=== PATIENT | male | born 1970 | race Caucasian/White ===

== ENCOUNTER 2025-02-22 10:43 | Inpatient (IN) | payer BC, SELFPAY ==
[2025-02-22] VITALS (23 sets, daily range): BP systolic 105–138; BP diastolic 73–93; PULSE 74–96; RESP 16–22; TEMP 36.6; O2SAT 93–99; BMI 27.2
--- NOTE | 2025-02-22 10:45 | ECG_ITS ---
APPROVED REPORT Exam: Resting ECG HR:79 bpm ECG Measurements Heart Rate 79 AXES WA 136 P 0 QRSd 96 QRS -9 QT 359 T 37 QTc 394 Conclusion SINUS RHYTHM POSSIBLE RIGHT VENTRICULAR CONDUCTION DELAY [RSR (QR) IN V1/V2] ST ELEVATION, PROBABLY EARLY REPOLARIZATION [ST ELEVATION WITH NORMALLY INFLECTED T-WAVE] BORDERLINE ECG UNCONFIRMED REPORT Electronically signed by : Kyler Mendez, 02/22/2025 15:00:13
--- NOTE | 2025-02-22 10:50 | IR_ITS ---
APPROVED REPORT Patient Location: Emergent PROCEDURES Left heart catheterization Left ventriculogram Selective coronary angiogram Drug-eluting stent deployment in the proximal LAD and mid LAD in a noncontiguous manner Mechanical thrombectomy to the LAD Intravascular ultrasound to the left anterior descending artery INDICATION Acute anterior ST elevation myocardial infarction, Coronary artery disease, Heavy thrombus burden, Complex coronary artery disease Informed consent was obtained prior to the procedure. COMPLICATIONS NONE Estimated Blood Loss: LESS THAN 10 ML TECHNIQUE One percent lidocaine used to anesthetize the right anterior aspect of the wrist. The right radial artery was accessed via the Seldinger technique. A 6 [place] sheath was placed in the right radial artery. 2.5 mg of Verapamil, 800 mcg of nitroglycerin, 1mg Lidocaine and 5000 U Heparin were given through the arterial sheath. The JL3 catheter was also used to perform left heart catheterization, left ventriculogram and selective coronary angiogram. At the end the diagnostic angiogram therapeutic heparin was administered and a Choice PT extra-support wire was placed distally in the LAD. A [employer] mechanical thrombectomy catheter was advanced and a large thrombus was aspirated restoring DAVID-3 flow. A 4 mm x 8 mm Donell frontier stent was deployed at 24 anamaria in the proximal left anterior descending artery. Intravascular ultrasound probe was advanced as the LAD was large caliber and it appeared there was spasm and slow flow distally. IVUS was performed to determine where atherosclerotic plaque was present as opposed to spasm. Following intravascular ultrasound probe a 4 mm x 22 mm Donell frontier stent was deployed at 12 anamaria in the proximal to mid LAD. A 4 mm x 8 mm noncompliant balloon was then deployed in the proximal segment at 20 anamaria to post dilate the stenosed area. DAVID 0 flow was present at the beginning the procedure with DAVID-3 flow at the end of the procedure. Then the procedure the apparatus was removed the sheath was removed and hemostasis was achieved using TR banding patient was transferred to the postop putting in stable condition ANGIOGRAPHIC RESULTS The left main artery Normal The left anterior descending artery Has a proximal 50% stenosis accompanied by a large occluding thrombus. There is an additional proximal concentric 80% stenosis followed by mild atheromatous plaque in the mid and distal segment. There was an initial thrombosis also in the 80% stenosis. Following revascularization there was wide inline flow throughout the entire LAD as the LAD wraps the apex and supplied a portion of the inferior wall. The first diagonal artery was jailed from the stent creating 70 to 80% stenosis accompanied by DAVID III flow The circumflex artery Is large and dominant and has diffuse proximal mid vessel 30% stenosis The right coronary artery Nondominant yet still large-caliber with mid vessel diffuse 40% stenosis The MCHUGH ventriculogram reveals Reduced ejection fraction with anterior wall hypokinesis The left ventricular end-diastolic pressure 30% IMPRESSION Acute anterior ST elevation myocardial infarction Successful mechanical thrombectomy to the proximal and mid LAD with successful drug-eluting stenting of the proximal and proximal to mid LAD in a noncontiguous manner Successful intravascular ultrasound probe of the LAD Reduced ejection fraction Elevated LVEDP PLAN 1. Effient and aspirin 2. Continuous telemetry monitoring 3. LDL less than 55 to be achieved with high intensity statin 4. Formal echocardiogram to determine degree of LV dysfunction and if LifeVest is required prior to discharge 5. Once hemodynamically stable start Entresto and carvedilol 6. Avoidance of tobacco products 7. Continuous telemetry monitoring for at least 48 hours Electronically signed by : Chino Back MD 02/22/2025 19:36:17
--- NOTE | 2025-02-22 10:50 | HMH.EDCP ---
Discharge Plan Clinical Impressions Clinical Impression: ST elevation (STEMI) myocardial infarction Discharge ED Provider: Katherine Mendez HPI General Stated Complaint: Chest Pain Time Seen by Provider: 02/22/25 10:49 History of Present Illness HPI narrative: Patient is a 54-year-old male presenting today with chest pain that started 45 minutes prior to arrival radiating to bilateral arms associate with diaphoresis. No past medical history aside from seizures. Related Data Allergies Allergy/AdvReac Type Severity Reaction Status Date / Time codeine Allergy Unknown Verified 02/22/25 10:50 allergy reaction PFSH [facility] Disclaimer: The information contained in this section may have been updated after the patient was seen, as this information can be updated by other users. Social History Smoking Status: Current every day smoker alcohol intake: never current occupational status: other Travel in the last 8 weeks?: None ROS Obtained: Yes All systems reviewed & no additional complaints except as documented Physical Exam General General appearance: in distress Respiratory Respiratory exam: Present normal lung sounds bilaterally Cardiovascular Cardiovascular exam: Present regular rate; Absent normal rhythm Neurological Exam Neurological exam: Present alert HEART Score HEART Score HEART Score assessment performed?: Yes History (anamnesis): Highly suspicious ECG: Significant ST-deviation Age: 45-65 years Risk factors: No known risk factors Troponin: </= normal limit HEART Score: 5 Critical Care Critical Care Time Critical Care Time: Yes Attestation: On , the high probability of a clinically significant, sudden or life threatening deterioration of the following system(s) required my full and direct attention, intervention and personal management. The time I documented below is in addition to time spent performing reported procedures but includes the following listed in this critical care notation. Total Time Total Critical Care Time: 35 Medical Decision Making Francisco J Inquiry Pt receiving controlled substance: No MDM Narrative Medical Decision Narrative: Patient with above history and physical EKG performed personal interpreted shows a ventricular rate of [address] elevations in leads V2 and V3 and V4 no obvious reciprocal changes but this is concerning clinically for a STEMI. Patient appears very uncomfortable aspirin given to him I discussed the case with our can dragger and he advised to give 100 units of heparin per kilogram will hold off on further antiplatelet agents that will be given in the Learning Administrator. This information was relayed to the patient we will take the patient immediately to the Learning Administrator at the earliest convenience.
[2025-02-22] MEDS: ASPIRIN 81MG CHEWABLE TABLET 324 MG PO (10:54)
--- NOTE | 2025-02-22 10:54 | PC.NURSE ---
STEMI alert called at 1053 am
--- NOTE | 2025-02-22 10:55 | PC.NURSE ---
18g IV established in the pt's left AC by MEHUL Cruz. pt placed on the defibrillation pads. pt clipped on bilateral groin and wrist. Obtained consent for cardiac catheterization from the pt.
[2025-02-22] MEDS: HEPARIN SODIUM 5,000 UNIT/ML VIAL 8600 UNIT IV (10:56)
--- NOTE | 2025-02-22 10:56 | PC.NURSE ---
pt was transported to the lab courier at this time.
--- NOTE | 2025-02-22 10:56 | PC.NURSE ---
Pt was taken out of the room at 1056 and taken to the Financial Analysis Manager
--- NOTE | 2025-02-22 10:57 | CA_ITS ---
APPROVED REPORT EXAM: Comprehensive 2D, Doppler, and color-flow Echocardiogram Sas Architect: Ayah Tang RVT Ht: 5 ft 10 in Wt: 190lbs BSA: 2.04 BP: 120/81 mmHg Indications: STEMI,CHEST PAIN 2D Dimensions IVSd 2.08 cm M: 0.6-1.2 LVEF (Visual) 65.60 % PWd 1.20 cm M: 0.6 - 1.2 LA Volume 53.20 mL LVDd 4.23 cm M: 4.2 - 5.9 LA Volume Index 26.08 mL/m2 (M/F) 16-34 LVDs 2.72 cm M: 2.5 - 4.0 M-Mode Dimensions LA Diam 3.03 cm (1.9-4.0) TAPSE 2.26 (<1.7) LV Diastology E Decel Time 217 (160-240 msec) E/A Ratio 0.8 Aortic Valve RONEL Index 1.48 cm2/m2 AoV Peak Oscar. 138.0 (50-130 cm/s) AI PHT 1579.00 ms AO Peak GR. 7.60 mmHg AO Mean GR. 4.70 (<5 mmHg) AO VTI 27.1 (18-25 cm) RONEL (VTI) 3.10 (2.5-4.5 cm2) Mitral Valve MV E Max Oscar. 51.0 (40-130 cm/s) MV A Velocity 68.0 (40-130 cm/s) E/A Ratio 0.75 MV PHT 63.0 ms Pulmonary Valve PV Peak Velocity 82.0 (50-150 cm/s) Tricuspid Valve TR P. Velocity 235.00 cm/s RAP Estimate 8.00 mmHg RVSP 30.00 mmHg Left Ventricle The left ventricle is normal size. Left ventricular systolic function is mildly reduced. There is increased left ventricular wall thickness. There is severe hypokinesis of the mid to distal septal, anteroseptal, and inferoseptal LV hearn. Grade 1 diastolic dysfunction is present. LVEF is 45% Right Ventricle The right ventricle is normal size. The right ventricular systolic function is normal. Atria The left atrium size is normal. The right atrium size is normal. There is no color Doppler evidence of interatrial shunt. Aortic Valve The aortic valve opens well. There is no hemodynamically significant aortic valvular stenosis. Mild aortic regurgitation is present. Mitral Valve The mitral valve is normal in structure. No evidence of mitral valve stenosis. Mild mitral regurgitation is present. Tricuspid Valve The tricuspid valve leaflets are thin and pliable. Trace tricuspid regurgitation. There is insufficient TR jet to estimate RVSP. Pulmonic Valve The pulmonary valve is grossly normal in structure. Trace pulmonic valve regurgitation is present. Great Vessels The aortic root is normal in size. IVC is normal in size and collapses >50% with inspiration. Pericardium There is no pericardial effusion. Other Information Study Quality: Fair Conclusion Mildly reduced LV systolic function (LVEF 45%). Severe hypokinesis of the mid to distal septal, anteroseptal, and inferoseptal LV hearn. MR, mild AI. Electronically signed by : Rula Liz MD 02/22/2025 15:49:37
[2025-02-22 10:59] LABS: Hematocrit 42.0 % (42.0-52.0); Hemoglobin 14.6 g/dL (14.1-18.0); Immature Granulocytes % 0.5 %; Mean Corpuscular HGB Conc 34.8 g/dL (31.8-35.4); Mean Corpuscular Hemoglobin 29.9 pg (27.0-31.2); Mean Corpuscular Volume 85.9 fl (80-94); Nucleated Red Blood Cells % 0 %; Platelet Count 246 K/mm3 (142-424); Red Blood Count 4.89 M/mm3 (4.60-6.20); Red Cell Distribution Width-SD 38.3 fL; White Blood Count 16.0 K/mm3 (4.8-10.8)
[2025-02-22 11:07] LABS: Alanine Aminotransferase 28 U/L (12-78); Albumin Level 4.7 g/dl (3.5-5.0); Albumin/Globulin Ratio 1.6 (1.1-1.8); Alkaline Phosphatase 114 U/L (38-126); Anion Gap 11.1 mEq/L (5-15); Aspartate Amino Transferase 31 U/L (17-59); Bilirubin,Total 1.4 mg/dl (0.2-1.3); Blood Urea Nitrogen 12 mg/dl (9-20); Calcium 9.4 mg/dl (8.4-10.2); Carbon Dioxide 28 mmol/L (22.0-30.0); Chloride 99 mmol/L (98-107); Creatinine Clearance Estimated 78 mL/min (50-200); Creatinine,Serum 1.30 mg/dl (0.66-1.25); Estimated Glomerular Filt Rate 57 ml/min (>60); GFR (African American) 69 ML/MIN (>60); Globulin 2.9 g/dL (1.3-3.2); Glucose 130 mg/dl (74-100); Potassium 3.1 mmoL/L (3.5-5.1); Sodium 135 mmol/L (136-145); Total Protein,Serum 7.6 g/dl (6.3-8.2)
[2025-02-22] MEDS: LIDOCAINE 1% 10ML MDV 10 ML IJ (11:07)
[2025-02-22] MEDS: NITROGLYCERIN 800MCG/8ML SYR (CATH LAB) 800 MCG IA (11:07)
[2025-02-22] MEDS: HEPARIN 1,000 UNITS/500ML NS (CATH LAB) 3000 UNIT IV (11:07)
[2025-02-22] MEDS: 0.9 % SODIUM CHLORIDE 500 ML 25 ML IV (11:07)
[2025-02-22] MEDS: VERAPAMIL 2.5MG/ML 2ML VIAL 2.5 MG IV (11:08)
[2025-02-22 11:10] LABS: Activated Partial Thrombo Time 23.7 seconds (22.8-30.6); INR 1.03 (0.9-1.1); Prothrombin Time 11.4 seconds (10.1-12.5)
[2025-02-22 11:18] LABS: Troponin I 0.02 ng/ml (0.00-0.034)
[2025-02-22] MEDS: PRASUGREL 10MG TAB 60 MG PO (11:23)
[2025-02-22] MEDS: FENTANYL 100MCG/2ML VIAL 50 MCG IV (11:24)
[2025-02-22] MEDS: HEPARIN 1,000 UNITS/ML 10ML VIAL (CATH LAB) 5000 UNIT IV (11:24)
[2025-02-22] MEDS: MIDAZOLAM HCL 1MG/ML 5ML VIAL 1 MG IV (11:24)
[2025-02-22 11:25] LABS: Total Cells Counted 100
[2025-02-22 11:26] LABS: RBC Morphology Normal
--- NOTE | 2025-02-22 11:40 | PC.NURSE ---
Report given to Carli RN.
--- NOTE | 2025-02-22 11:42 | HMH.PHAINT1 ---
Pharmacy Intervention Comments: MEDICATION RECONCILIATION COMPLETED ON PATIENT USING EXTERNAL FILL HISTORY FROM PHARMACY. -JESSICA MACK, GARLANDD
--- NOTE | 2025-02-22 12:19 | EXP.CARD.CON ---
History of Present Illness History of Present Illness Consult date: 02/22/25 Requesting physician: Rajan Brooks Consult reason: chest pain Chief complaint: chest pain History of present illness: Vijay Hamm is a 54-year-old male who presented to emergency department today with complaints of chest pain that started 45 minutes prior to arrival radiating to bilateral arms associated with diaphoresis. EKG performed shows significant ST elevations in leads V2, 3 and 4 with no obvious reciprocal changes noted. Patient was taken to Site Coordinator for STEMI. Labs as follow: WBC 16, hemoglobin 14.6, sodium 135, potassium 3.1, creatinine 1.3, and initial troponin normal. [facility] Disclaimer: The information contained in this section may have been updated after the patient was seen, as this information can be updated by other users. Medical History (Updated 02/22/25 @ 14:18 by Asia Curtis RN) History of chest pain Hypertension Surgical History History of total left knee replacement History of cholecystectomy Social History Smoking Status: Current every day smoker alcohol intake: never current occupational status: other Travel in the last 8 weeks?: None Have you lived/traveled outside US in past 30 days?: No Contact w/someone who lives/traveled outside US past 30 days?: No Exposure to someone with infectious disease in past 14 days?: No Do you have a fever (greater than 100.4 F or 38 C)?: No Have you tested positive for COVID-19?: No Exposed to someone with COVID-19 in past 14 days?: No Do you have a sore throat?: No Do you have a cough?: No Do you have any weakness?: No Do you have any diarrhea?: No Are you experiencing any unusual bleeding?: No Do you have any muscle aches/pain?: No Do you have any abdominal pain?: No Are you experiencing loss of taste or smell?: No Review of Systems Review of Systems Review of systems:: pertinent systems reviewed and negative unless documented below Constitutional Constitutional: Reports system reviewed and no additional complaints, except as documented *Cardiovascular Cardiovascular: Reports system reviewed and no additional complaints, except as documented, Reports chest pain and Reports dyspnea *Respiratory Respiratory: Reports system reviewed and no additional complaints, except as documented and Reports dyspnea *Gastrointestinal Gastrointestinal: Reports system reviewed and no additional complaints, except as documented *Neurologic Neurologic: Reports system reviewed and no additional complaints, except as documented and Denies confusion Psychiatric Psychiatric: Reports system reviewed and no additional complaints, except as documented and Denies confusion Exam Data for Last 24 hours Vital signs and Labs for Last 24 Hours: Temp Pulse Resp BP Pulse Ox O2 Del Method O2 Flow Rate 97.9 F 91 H 18 120/81 96 Nasal Cannula 2 02/22/25 10:56 02/22/25 12:05 02/22/25 12:05 02/22/25 12:05 02/22/25 12:05 02/22/25 12:05 02/22/25 12:05 Laboratory Results - last 24 hr 02/22/25 10:49: WBC 16.0 H, RBC 4.89, Hgb 14.6, Hct 42.0, MCV 85.9, MCH 29.9, MCHC 34.8, RDW 12.3, Plt Count 246, MPV 9.6, Neut % (Auto) 83.9 H, Lymph % (Auto) 5.3 L, [place] % (Auto) 9.9 H, Eos % (Auto) 0.1, Baso % (Auto) 0.3, Neut # (Auto) 13.4 H, Lymph # (Auto) 0.9, [place] # (Auto) 1.6 H, Eos # (Auto) 0.0, Baso # (Auto) 0.1, Total Counted 100, Neutrophils % (Manual) 82 H, Lymphocytes % (Manual) 8 L, Monocytes % (Manual) 10 H, Platelet Estimate Normal, RBC Morphology Normal, PT 11.4, INR 1.03, APTT 23.7, Sodium 135 L, Potassium 3.1 L, Chloride 99, Carbon Dioxide 28, Anion Gap 11.1, BUN 12, Creatinine 1.30 H, Estimated Creat Clear 78, Estimated GFR 57 L, Est GFR ( Amer) 69, Glucose 130 H, Calcium 9.4, Total Bilirubin 1.4 H, AST 31, ALT 28, Alkaline Phosphatase 114, Troponin I 0.02, Total Protein 7.6, Albumin 4.7, Globulin 2.9, Albumin/Globulin Ratio 1.6 I & O for Last 24 hours: Intake & Output 02/19/25 02/20/25 02/21/25 02/22/25 23:59 23:59 23:59 23:59 Intake Total 500 / 500 Balance 500 / 500 Weight 190 lb Constitutional Constitutional: no acute distress *Routine Respiratory Exam Respiratory: Present CTA bilaterally and symmetric chest movement *Routine Cardiovascular Exam Cardiovascular: Present RRR, Normal S1 and Normal S2 *Routine Abdominal Exam Abdominal: Present soft and normoactive bowel sounds; Absent tenderness *Routine Extremities Exam Extremities: Present full ROM and normal capillary refill; Absent edema *Routine Skin Exam Skin: Present intact, dry and warm Detailed Neck Exam: Thyroids Thyroid: Absent bruit Meds Home Medications and Allergies Home Medications ?Medication ?Instructions ?Recorded ?Confirmed ?Type losartan 25 mg tablet 25 mg PO DAILY 02/22/25 02/22/25 History New Prescriptions to Start Prescriptions: Allergies Allergy/AdvReac Type Severity Reaction Status Date / Time codeine Allergy Unknown Verified 02/22/25 10:50 allergy reaction Assessment and Plan *Assessment and plan (1) ST elevation (STEMI) myocardial infarction: Status: Acute Category: Medical Code(s): I21.3 - ST elevation (STEMI) myocardial infarction of unspecified site Plan Chest pain Stemi Elevation in V2-4 chest pain present [facility] results pending Echo pending
[2025-02-22 12:33] LABS: Hepatitis C Ab Qual. W/ RFX NEGATIVE (Negative)
--- NOTE | 2025-02-22 12:41 | EXP.HP ---
History of Present Illness *Admission Date: 02/22/25 *Reason for visit:: Chest pain *History of present illness: Vijay Hamm is a 54-year-old male with a medical history significant for hypertension who presents with crushing substernal chest pain with radiation down his left arm. Patient states he was hunting about 50 minutes prior to arriving to the ED, initially began with nausea for which he took a Wisk of Dr. Trujillo and had vomiting. Nausea apparently subsequently subsided, but soon after midsternal chest pain began crushing in nature with radiation down his left arm, and diaphoresis. Patient has never experienced before. He has a non-smoker, does not drink much alcohol. Denies fever/chills, abdominal pain, recent medication changes. Has been adherent to his losartan at home. Upon arrival patient had ST elevations in leads V2 through V4 consistent with a STEMI. STEMI alert was initiated and patient was taken to the Loss Control Representative and received FLORENCIO x 2 to the LAD. Patient tolerated procedure well. On my evaluation of patient, he continues to have mild left-sided chest pain but significantly improved from prior. Denies shortness of breath, fevers. Does endorse fatigue. Workup in the ED significant for WBC 16, potassium 3.1, creatinine 1.3, LDL 102, troponin 0.02. ECHO reveals LVEF 45% with severe wall motion abnormalities. Given these findings, ED provider discussed case with me and I decided to admit patient from the Loss Control Representative. [facility] Disclaimer: The information contained in this section may have been updated after the patient was seen, as this information can be updated by other users. Medical History (Updated 02/22/25 @ 17:04 by Rajan Brooks MD) Hypertension History of chest pain Surgical History History of total left knee replacement History of cholecystectomy Social History Smoking Status: Current every day smoker alcohol intake: never current occupational status: other Travel in the last 8 weeks?: None Have you lived/traveled outside US in past 30 days?: No Contact w/someone who lives/traveled outside US past 30 days?: No Exposure to someone with infectious disease in past 14 days?: No Do you have a fever (greater than 100.4 F or 38 C)?: No Have you tested positive for COVID-19?: No Exposed to someone with COVID-19 in past 14 days?: No Do you have a sore throat?: No Do you have a cough?: No Do you have any weakness?: No Do you have any diarrhea?: No Are you experiencing any unusual bleeding?: No Do you have any muscle aches/pain?: No Do you have any abdominal pain?: No Are you experiencing loss of taste or smell?: No Meds Home Medications and Allergies Home Medications ?Medication ?Instructions ?Recorded ?Confirmed ?Type losartan 25 mg tablet 25 mg PO DAILY 02/22/25 02/22/25 History New Prescriptions to Start Prescriptions: Allergies Allergy/AdvReac Type Severity Reaction Status Date / Time codeine Allergy Unknown Verified 02/22/25 10:50 allergy reaction Exam Data for Last 24 hours Vital signs and Labs for Last 24 Hours: Temp Pulse Resp BP Pulse Ox O2 Del Method O2 Flow Rate 97.9 F 87 18 123/80 95 Nasal Cannula 1 02/22/25 10:56 02/22/25 12:35 02/22/25 12:35 02/22/25 12:35 02/22/25 12:35 02/22/25 12:35 02/22/25 12:35 Laboratory Results - last 24 hr 02/22/25 10:49: WBC 16.0 H, RBC 4.89, Hgb 14.6, Hct 42.0, MCV 85.9, MCH 29.9, MCHC 34.8, RDW 12.3, Plt Count 246, MPV 9.6, Neut % (Auto) 83.9 H, Lymph % (Auto) 5.3 L, [place] % (Auto) 9.9 H, Eos % (Auto) 0.1, Baso % (Auto) 0.3, Neut # (Auto) 13.4 H, Lymph # (Auto) 0.9, [place] # (Auto) 1.6 H, Eos # (Auto) 0.0, Baso # (Auto) 0.1, Total Counted 100, Neutrophils % (Manual) 82 H, Lymphocytes % (Manual) 8 L, Monocytes % (Manual) 10 H, Platelet Estimate Normal, RBC Morphology Normal, PT 11.4, INR 1.03, APTT 23.7, Sodium 135 L, Potassium 3.1 L, Chloride 99, Carbon Dioxide 28, Anion Gap 11.1, BUN 12, Creatinine 1.30 H, Estimated Creat Clear 78, Estimated GFR 57 L, Est GFR ( Amer) 69, Glucose 130 H, Calcium 9.4, Total Bilirubin 1.4 H, AST 31, ALT 28, Alkaline Phosphatase 114, Troponin I 0.02, Total Protein 7.6, Albumin 4.7, Globulin 2.9, Albumin/Globulin Ratio 1.6, HCV Ab JERMAINE w/Rflx PCR Qn Negative, HIV Ag/Ab Combo Qual Negative I & O for Last 24 hours: Intake & Output 02/19/25 02/20/25 02/21/25 02/22/25 23:59 23:59 23:59 23:59 Intake Total 500 / 500 Balance 500 / 500 Weight 86.183 kg Constitutional Constitutional: no acute distress *Routine HEENT Exam Head: Present normocephalic Eye: Present EOMI and PERRL ENT: Present mucous membranes moist *Routine Neck Exam Neck: Present supple; Absent lymphadenopathy *Routine Respiratory Exam Respiratory: Present CTA bilaterally *Routine Cardiovascular Exam Cardiovascular: Present RRR *Routine Abdominal Exam Abdominal: Present soft and normoactive bowel sounds; Absent tenderness *Routine Rectal Exam Rectal:: deferred *Routine Genitalia Exam Genitalia:: deferred *Routine Extremities Exam Extremities: Absent cyanosis, clubbing or edema *Routine Skin Exam Skin: Present warm; Absent rash *Routine Neurological Exam Neurological: Present alert and oriented X3 Assessment and Plan *Assessment and plan (1) ST elevation (STEMI) myocardial infarction: Status: Acute Category: Medical Code(s): I21.3 - ST elevation (STEMI) myocardial infarction of unspecified site (2) LV dysfunction: Status: Acute Category: Medical Code(s): I51.9 - Heart disease, unspecified (3) Hyperlipidemia: Status: Acute Category: Medical Code(s): E78.5 - Hyperlipidemia, unspecified Plan Vijay Hamm is a 54-year-old male with a medical history significant for hypertension who presents with crushing substernal chest pain with radiation down his left arm. Patient states he was hunting about 50 minutes prior to arriving to the ED, initially began with nausea for which he took a Wisk of Dr. Trujillo and had vomiting. Nausea apparently subsequently subsided, but soon after midsternal chest pain began crushing in nature with radiation down his left arm, and diaphoresis. Patient has never experienced before. He has a non-smoker, does not drink much alcohol. Denies fever/chills, abdominal pain, recent medication changes. Has been adherent to his losartan at home. Upon arrival patient had ST elevations in leads V2 through V4 consistent with a STEMI. STEMI alert was initiated and patient was taken to the Loss Control Representative and received FLORENCIO x 2 to the LAD. Patient tolerated procedure well. On my evaluation of patient, he continues to have mild left-sided chest pain but significantly improved from prior. Denies shortness of breath, fevers. Does endorse fatigue. Workup in the ED significant for WBC 16, potassium 3.1, creatinine 1.3, LDL 102, troponin 0.02. ECHO reveals LVEF 45% with severe wall motion abnormalities. Given these findings, ED provider discussed case with me and I decided to admit patient from the Loss Control Representative. #STEMI #CAD #LV dysfunction #Hypertension #Hyperlipidemia ? Presented with substernal crushing chest pain, radiation to left and left arm. ST elevations in leads V2 to V4, consistent with STEMI. ? Patient is a non-smoker, does not drink alcohol. ? Taken to Loss Control Representative, s/p PCI with FLORENCIO x 2 to LAD. Patient tolerated procedure well. ? ECHO on 02/22/2025 shows LVEF 45% with severe wall motion abnormalities. No signs of volume overload. ? Started aspirin 81 mg, prasugrel 10 mg, atorvastatin 40 mg, metoprolol succinate 25 mg. Plan to restart home losartan tomorrow as BP tolerates. ? Follow-up A1c, LDL 102, TSH. ? Monitor for 48 hours on continuous cardiac telemetry. ? [place], morphine as needed for breakthrough chest pain. ? Follow-up morning CMP. #Hypokalemia ? Potassium 3.1. Replace per protocol. #Leukocytosis ? Initial WBC 16, likely reactive in the setting of stress. Follow-up morning CBC. Full code DVT prophylaxis: Lovenox 40 mg Home medications: Restarted, holding home losartan for now.
[2025-02-22 12:59] LABS: Cholesterol 171 mg/dl (140-200); HDL Cholesterol 61 mg/dl (40-60); Triglycerides 60 mg/dl (30-150)
[2025-02-22 13:30] LABS: Thyroid Stimulating Hormone 0.64 uIU/mL (0.465-4.68)
[2025-02-22 13:39] LABS: Hemoglobin A1C 5.4 % (4.0-6.0)
[2025-02-22] MEDS: IOPAMIDOL-370 (76%);100ML BOTTLE 130 ML IV (18:39)
[2025-02-22] MEDS: ONDANSETRON 4MG/2ML VIAL 4 MG IV (20:31)
[2025-02-22] MEDS: ATORVASTATIN 40MG TABLET 40 MG PO (20:31)
[2025-02-22] MEDS: HYDROMORPHONE 2MG/ML SYRINGE 1 MG IV (21:08)
[2025-02-23] VITALS (10 sets, daily range): BP systolic 119–132; BP diastolic 71–94; PULSE 60–82; RESP 11–21; TEMP 36.6–37.6; O2SAT 90–97; BMI 27.2
[2025-02-23] MEDS: HYDROCODONE/APAP 5/325 MG TABLET 1 TAB PO (03:48)
--- NOTE | 2025-02-23 04:32 | PC.NURSE ---
0434 - patient had an eight beat run of v-tach on tele monitor. patient not symptomatic and no changes in vital signs. Hospitalist made aware. Will continue to monitor.
[2025-02-23 05:32] LABS: Alanine Aminotransferase 43 U/L (12-78); Albumin Level 3.9 g/dl (3.5-5.0); Albumin/Globulin Ratio 1.6 (1.1-1.8); Alkaline Phosphatase 87 U/L (38-126); Anion Gap 7.0 mEq/L (5-15); Aspartate Amino Transferase 153 U/L (17-59); Bilirubin,Total 1.5 mg/dl (0.2-1.3); Blood Urea Nitrogen 9 mg/dl (9-20); Calcium 8.8 mg/dl (8.4-10.2); Carbon Dioxide 29 mmol/L (22.0-30.0); Chloride 99 mmol/L (98-107); Creatinine Clearance Estimated 102 mL/min (50-200); Creatinine,Serum 1.00 mg/dl (0.66-1.25); Estimated Glomerular Filt Rate 78 ml/min (>60); GFR (African American) 94 ML/MIN (>60); Globulin 2.5 g/dL (1.3-3.2); Glucose 152 mg/dl (74-100); Magnesium 1.9 mg/dl (1.6-2.3); Sodium 132 mmol/L (136-145); Total Protein,Serum 6.4 g/dl (6.3-8.2)
[2025-02-23 05:34] LABS: Hematocrit 40.0 % (42.0-52.0); Hemoglobin 14.0 g/dL (14.1-18.0); Immature Granulocytes % 0.4 %; Mean Corpuscular HGB Conc 35.0 g/dL (31.8-35.4); Mean Corpuscular Hemoglobin 30.3 pg (27.0-31.2); Mean Corpuscular Volume 86.6 fl (80-94); Nucleated Red Blood Cells % 0 %; Platelet Count 240 K/mm3 (142-424); Red Blood Count 4.62 M/mm3 (4.60-6.20); Red Cell Distribution Width-SD 39.2 fL; White Blood Count 12.9 K/mm3 (4.8-10.8)
[2025-02-23 05:42] LABS: Potassium 3.0 mmoL/L (3.5-5.1)
[2025-02-23 07:21] LABS: CATHL Activated Clotting Time 289 SEC (74-125)
[2025-02-23] MEDS: ASPIRIN EC 81MG TABLET 81 MG PO (08:50)
[2025-02-23] MEDS: PRASUGREL 10MG TAB 10 MG PO (08:50)
[2025-02-23] MEDS: METOPROLOL SUCCINATE XL 25MG TABLET 25 MG PO (09:33)
--- NOTE | 2025-02-23 10:31 | EXP.CARD.PN ---
Subjective Subjective Date: 02/23/25 Time: 08:00 Principal diagnosis: STEMI Interval history: s/p LHC yesterday. Morning labs reviewed. Exam Data for Last 24 hours Vital signs and Labs for Last 24 Hours: Temp Pulse Resp BP Pulse Ox O2 Del Method O2 Flow Rate 97.9 F 60 18 131/94 H 96 Nasal Cannula 2 02/22/25 10:56 02/23/25 04:00 02/23/25 02:00 02/23/25 02:00 02/23/25 02:00 02/23/25 06:54 02/23/25 06:54 Laboratory Results - last 24 hr 02/22/25 10:49: WBC 16.0 H, RBC 4.89, Hgb 14.6, Hct 42.0, MCV 85.9, MCH 29.9, MCHC 34.8, RDW 12.3, Plt Count 246, MPV 9.6, Neut % (Auto) 83.9 H, Lymph % (Auto) 5.3 L, [place] % (Auto) 9.9 H, Eos % (Auto) 0.1, Baso % (Auto) 0.3, Neut # (Auto) 13.4 H, Lymph # (Auto) 0.9, [place] # (Auto) 1.6 H, Eos # (Auto) 0.0, Baso # (Auto) 0.1, Total Counted 100, Neutrophils % (Manual) 82 H, Lymphocytes % (Manual) 8 L, Monocytes % (Manual) 10 H, Platelet Estimate Normal, RBC Morphology Normal, PT 11.4, INR 1.03, APTT 23.7, Sodium 135 L, Potassium 3.1 L, Chloride 99, Carbon Dioxide 28, Anion Gap 11.1, BUN 12, Creatinine 1.30 H, Estimated Creat Clear 78, Estimated GFR 57 L, Est GFR ( Amer) 69, Glucose 130 H, Hemoglobin A1c 5.4, Calcium 9.4, Total Bilirubin 1.4 H, AST 31, ALT 28, Alkaline Phosphatase 114, Troponin I 0.02, Total Protein 7.6, Albumin 4.7, Globulin 2.9, Albumin/Globulin Ratio 1.6, Triglycerides 60, Cholesterol 171, LDL Cholesterol Direct 102.32, VLDL Cholesterol 12, HDL Cholesterol 61 H, Cholesterol/HDL Ratio 2.8, TSH 0.64, HCV Ab JERMAINE w/Rflx PCR Qn Negative, HIV Ag/Ab Combo Qual Negative 02/22/25 12:32: Activated Clotting Time 289 H* 02/23/25 04:34: WBC 12.9 H, RBC 4.62, Hgb 14.0 L, Hct 40.0 L, MCV 86.6, MCH 30.3, MCHC 35.0, RDW 12.4, Plt Count 240, MPV 9.8, Neut % (Auto) 81.7 H, Lymph % (Auto) 11.1, [place] % (Auto) 6.1, Eos % (Auto) 0.5, Baso % (Auto) 0.2, Neut # (Auto) 10.5 H, Lymph # (Auto) 1.4, [place] # (Auto) 0.8, Eos # (Auto) 0.1, Baso # (Auto) 0.0, Sodium 132 L, Potassium 3.0 L, Chloride 99, Carbon Dioxide 29, Anion Gap 7.0, BUN 9, Creatinine 1.00 D, Estimated Creat Clear 102, Estimated GFR 78, Est GFR ( Amer) 94 D, Glucose 152 H, Calcium 8.8, Magnesium 1.9, Total Bilirubin 1.5 H, AST 153 H D, ALT 43 D, Alkaline Phosphatase 87, Total Protein 6.4, Albumin 3.9 D, Globulin 2.5, Albumin/Globulin Ratio 1.6 I & O for Last 24 hours: Intake & Output 02/20/25 02/21/25 02/22/25 02/23/25 23:59 23:59 23:59 23:59 Intake Total 740 / 740 Output Total 1200 / 2000 1200 / 1200 Balance -460 / -1260 -1200 / -1200 Weight 190 lb 190 lb 7.67 oz Constitutional Constitutional: no acute distress *Routine Respiratory Exam Respiratory: Present CTA bilaterally and symmetric chest movement *Routine Cardiovascular Exam Cardiovascular: Present RRR, Normal S1 and Normal S2 *Routine Abdominal Exam Abdominal: Present soft and normoactive bowel sounds; Absent tenderness *Routine Extremities Exam Extremities: Present full ROM and normal capillary refill; Absent edema *Routine Skin Exam Skin: Present intact, dry and warm Detailed Neck Exam: Thyroids Thyroid: Absent bruit Progress Note: A&P Assessment and plan (1) ST elevation (STEMI) myocardial infarction: Status: Acute (2) LV dysfunction: Status: Acute (3) Hyperlipidemia: Status: Acute Assessment and Plan Assessment and Plan for All Diagnoses:: Chest pain Stemi s/p [facility] 02/22: Mechanical thrombectomy to the proximal and mid LAD with successful FLORENCIO stenting of the proximal proximal to mid LAD. Continue DAPT therapy with Effient and aspirin. LDL goal < 55, Start atorvastatin 40 mg p.o. daily A1C 5.4 HFrEF No signs of volume overload at this time. EF 45% Start Entresto 24/26 mg p.o. BID Start aldactone 25 mg p.o. daily Start Jardiance 10 mg p.o. daily Continue metoprolol 25 mg p.o. daily CV summary: Patient will need to be monitored for 48 hours post STEMI. Continue below listed medications. Cardiac Meds Aspirin 81 mg p.o. daily Atorvastatin 40 mg p.o. daily Metoprolol succinate 25 mg p.o. daily Effient 10 mg p.o. daily Entresto 24/26 mg p.o. twice daily Aldactone 25 mg p.o. daily Jardiance 10 mg p.o. daily
[2025-02-23 11:45] LABS: Troponin I 35.30 ng/ml (0.00-0.034)
[2025-02-23] MEDS: POTASSIUM CHLORIDE 20MEQ TAB 40 MEQ PO ×3 (13:09→21:19)
--- NOTE | 2025-02-23 13:30 | EXP.PN ---
Subjective *Date: 02/23/25 *Time: 13:30 Interval history: Patient doing well today, no complaints. No chest pain, shortness of breath. Did have an episode of 8 beat nonsustained V. tach overnight. No repeat episodes. Hemodynamically stable. Continue metoprolol. Exam Data for Last 24 hours Vital signs and Labs for Last 24 Hours: Temp Pulse Resp BP Pulse Ox O2 Del Method O2 Flow Rate 98.0 F 67 21 130/91 H 97 Room Air 2 02/23/25 12:00 02/23/25 12:00 02/23/25 12:00 02/23/25 12:00 02/23/25 12:00 02/23/25 13:00 02/23/25 06:54 Laboratory Results - last 24 hr 02/22/25 10:49: Hemoglobin A1c 5.4, TSH 0.64 02/22/25 12:32: Activated Clotting Time 289 H* 02/23/25 04:34: WBC 12.9 H, RBC 4.62, Hgb 14.0 L, Hct 40.0 L, MCV 86.6, MCH 30.3, MCHC 35.0, RDW 12.4, Plt Count 240, MPV 9.8, Neut % (Auto) 81.7 H, Lymph % (Auto) 11.1, [place] % (Auto) 6.1, Eos % (Auto) 0.5, Baso % (Auto) 0.2, Neut # (Auto) 10.5 H, Lymph # (Auto) 1.4, [place] # (Auto) 0.8, Eos # (Auto) 0.1, Baso # (Auto) 0.0, Sodium 132 L, Potassium 3.0 L, Chloride 99, Carbon Dioxide 29, Anion Gap 7.0, BUN 9, Creatinine 1.00 D, Estimated Creat Clear 102, Estimated GFR 78, Est GFR ( Amer) 94 D, Glucose 152 H, Calcium 8.8, Magnesium 1.9, Total Bilirubin 1.5 H, AST 153 H D, ALT 43 D, Alkaline Phosphatase 87, Troponin I 35.30 H, Total Protein 6.4, Albumin 3.9 D, Globulin 2.5, Albumin/Globulin Ratio 1.6 I & O for Last 24 hours: Intake & Output 02/20/25 02/21/25 02/22/25 02/23/25 23:59 23:59 23:59 23:59 Intake Total 740 / 740 740 / 740 Output Total 1200 / 2000 2450 / 2450 Balance -460 / -1260 -1710 / -1710 Weight 86.183 kg 86.4 kg Constitutional Constitutional: no acute distress *Routine Respiratory Exam Respiratory: Present CTA bilaterally and symmetric chest movement *Routine Cardiovascular Exam Cardiovascular: Present RRR, Normal S1 and Normal S2 *Routine Abdominal Exam Abdominal: Present soft and normoactive bowel sounds; Absent tenderness *Routine Extremities Exam Extremities: Present full ROM and normal capillary refill; Absent edema *Routine Skin Exam Skin: Present intact, dry and warm Detailed Neck Exam: Thyroids Thyroid: Absent bruit Assessment and Plan *Assessment and plan (1) ST elevation (STEMI) myocardial infarction: Status: Acute Category: Medical Code(s): I21.3 - ST elevation (STEMI) myocardial infarction of unspecified site (2) LV dysfunction: Status: Acute Category: Medical Code(s): I51.9 - Heart disease, unspecified (3) Hyperlipidemia: Status: Acute Category: Medical Code(s): E78.5 - Hyperlipidemia, unspecified Plan Vijay Hamm is a 54-year-old male with a medical history significant for hypertension who presents with crushing substernal chest pain with radiation down his left arm. Patient states he was hunting about 50 minutes prior to arriving to the ED, initially began with nausea for which he took a Wisk of Dr. Trujillo and had vomiting. Nausea apparently subsequently subsided, but soon after midsternal chest pain began crushing in nature with radiation down his left arm, and diaphoresis. Patient has never experienced before. He has a non-smoker, does not drink much alcohol. Denies fever/chills, abdominal pain, recent medication changes. Has been adherent to his losartan at home. Upon arrival patient had ST elevations in leads V2 through V4 consistent with a STEMI. STEMI alert was initiated and patient was taken to the [facility] and received FLORENCIO x 2 to the LAD. Patient tolerated procedure well. On my evaluation of patient, he continues to have mild left-sided chest pain but significantly improved from prior. Denies shortness of breath, fevers. Does endorse fatigue. Workup in the ED significant for WBC 16, potassium 3.1, creatinine 1.3, LDL 102, troponin 0.02. ECHO reveals LVEF 45% with severe wall motion abnormalities. Given these findings, ED provider discussed case with me and I decided to admit patient from the [facility]. #STEMI #CAD #LV dysfunction #Hypertension #Hyperlipidemia #Nonsustained V. tach ? Presented with substernal crushing chest pain, radiation to left and left arm. ST elevations in leads V2 to V4, consistent with STEMI. ? Patient is a non-smoker, does not drink alcohol. Family history of deaths from [place]. ? Taken to [facility], s/p PCI with FLORENCIO x 2 to LAD. Patient tolerated procedure well. ? ECHO on 02/22/2025 shows LVEF 45% with severe wall motion abnormalities. No signs of volume overload. ? Patient doing well today, no complaints. No chest pain, shortness of breath. Did have an episode of 8 beat nonsustained V. tach overnight. No repeat episodes. Hemodynamically stable. Continue metoprolol. ? Continue aspirin 81 mg, prasugrel 10 mg, atorvastatin 40 mg, metoprolol succinate 25 mg. Plan to restart home losartan tomorrow as BP tolerates. ? Cardiology started Entresto 24/26 mg, spironolactone 25 mg, Jardiance 10 mg today due to LV dysfunction. Follow-up tolerance. ? A1c 5.4%, LDL 102, TSH 0.64. ? Monitor for a total of 48 hours on continuous cardiac telemetry. Anticipate discharge tomorrow patient is stable. ? [place], morphine as needed for breakthrough chest pain. ? Follow-up morning CMP. #Hypokalemia ? Potassium 3.0. Replace per protocol. #Leukocytosis ? Initial WBC 16, improved to 12.9., likely reactive in the setting of stress. No signs of infection. Follow-up morning CBC. #History of seizures ? Will hold off on continuing lamotrigine for now due to cardiac comorbidities and high risk for arrhythmias. Will discuss patient about alternatives. Full code DVT prophylaxis: Lovenox 40 mg Home medications: Restarted.
[2025-02-23] MEDS: ATORVASTATIN 40MG TABLET 40 MG PO (21:16)
[2025-02-23] MEDS: SACUBITRIL/VALSARTAN 24-26MG TABLET 1 EACH PO (21:19)
[2025-02-24] VITALS (9 sets, daily range): BP systolic 104–137; BP diastolic 67–82; PULSE 70–89; RESP 16–18; TEMP 36.9–37.7; O2SAT 94–97; BMI 26.6
--- NOTE | 2025-02-24 06:19 | PC.NURSE ---
Pt. is alert and orientated x 4. Pt. was on 2 liter oxygen while sleeping room air sats sleeping 89-90% Oxygen at 2 liters sats >94%. Pt. denies chest pain or shortness of breath. Pt. was admitted with STEMI and had a heart cath a couple of days ago. Pt. up to bathroom with standby assist. Pt. rested quietly and comfortable all night. Personal items and call donato in reach. Bed in low and locked position. Safety measures in place.
[2025-02-24 06:41] LABS: Alanine Aminotransferase 47 U/L (12-78); Albumin Level 4.0 g/dl (3.5-5.0); Albumin/Globulin Ratio 1.3 (1.1-1.8); Alkaline Phosphatase 101 U/L (38-126); Anion Gap 9.1 mEq/L (5-15); Aspartate Amino Transferase 154 U/L (17-59); Bilirubin,Total 1.5 mg/dl (0.2-1.3); Blood Urea Nitrogen 6 mg/dl (9-20); Calcium 9.2 mg/dl (8.4-10.2); Carbon Dioxide 28 mmol/L (22.0-30.0); Chloride 100 mmol/L (98-107); Creatinine Clearance Estimated 91 mL/min (50-200); Creatinine,Serum 1.10 mg/dl (0.66-1.25); Estimated Glomerular Filt Rate 69 ml/min (>60); GFR (African American) 84 ML/MIN (>60); Globulin 3.0 g/dL (1.3-3.2); Glucose 115 mg/dl (74-100); Magnesium 1.8 mg/dl (1.6-2.3); Potassium 4.1 mmoL/L (3.5-5.1); Sodium 133 mmol/L (136-145); Total Protein,Serum 7.0 g/dl (6.3-8.2)
[2025-02-24] MEDS: EMPAGLIFLOZIN 10MG TABLET 10 MG PO (08:49)
[2025-02-24] MEDS: ASPIRIN EC 81MG TABLET 81 MG PO (08:49)
[2025-02-24] MEDS: PRASUGREL 10MG TAB 10 MG PO (08:50)
[2025-02-24] MEDS: SACUBITRIL/VALSARTAN 24-26MG TABLET 1 EACH PO (08:50)
[2025-02-24] MEDS: METOPROLOL SUCCINATE XL 25MG TABLET 25 MG PO (08:50)
[2025-02-24] MEDS: SPIRONOLACTONE 25MG TABLET 25 MG PO (08:50)
--- NOTE | 2025-02-24 10:02 | XR_ITS ---
FINAL REPORT CLINICAL HISTORY: mailaise, intermittent hypoxia COMPARISON: None FINDINGS: The heart size is normal. The mediastinum is normal. There is no focal infiltrate or edema. There are no pleural effusions. There is no pneumothorax. There is no osseous abnormality. IMPRESSION: No acute cardiopulmonary process Reviewed, Interpreted and Dictated by Lazarus Mason MD Transcribed by Vicky Velez Authenticated and [facility]
[2025-02-24 10:10] LABS: Adenovirus,PCR Not Detected (NotDetected); Chlamydophila Pneumoniae, PCR Not Detected (NotDetected); Coronavirus 19, PCR Not Detected (NotDetected); Coronovirus HKU1,PCR Not Detected (NotDetected); Influenza A, PCR Not Detected (NotDetected); Influenza AH1, 2009 Not Detected (NotDetected); Influenza AH1, PCR Not Detected (NotDetected); Influenza AH3,PCR Not Detected (NotDetected); Influenza B, PCR Not Detected (NotDetected); Mycoplasma Pneumoniae, PCR Not Detected (NotDetected); Parainfluenza 1, PCR Not Detected (NotDetected); Parainfluenza 2, PCR Not Detected (NotDetected); Parainfluenza 3, PCR Not Detected (NotDetected); Parainfluenza 4, PCR Not Detected (NotDetected)
--- NOTE | 2025-02-24 10:35 | P.DS_ITS ---
General Admission date:: 02/22/25 HPI HPI HPI: Vijay Hamm is a 54-year-old male with a medical history significant for hypertension who presents with crushing substernal chest pain with radiation down his left arm. Patient states he was hunting about 50 minutes prior to arriving to the ED, initially began with nausea for which he took a Wisk of Dr. Trujillo and had vomiting. Nausea apparently subsequently subsided, but soon afte r midsternal chest pain began crushing in nature with radiation down his left arm, and diaphoresis. Patient has never experienced before. He has a non- smoker, does not drink much alcohol. Denies fever/chills, abdominal pain, recent medication changes. Has been adherent to his losartan at home. Upon arrival patient had ST elevations in leads V2 through V4 consistent with a STEMI. STEMI alert was initiated and patient was taken to the [facility] and received FLORENCIO x 2 to the LAD. Patient tolerated procedure well. On my evaluation of patient, he continues to have mild left-sided chest pain but significantly improved from prior. Denies shortness of breath, fevers. Does endorse fatigue. Workup in the ED significant for WBC 16, potassium 3.1, creatinine 1.3, LDL 102, troponin 0.02. ECHO reveals LVEF 45% with severe wall motion abnormalities. Given these findings, ED provider discussed case with me and I decided to admit patient from the [facility]. Hospital Course Hospital Course Hospital Course: Vijay Hamm is a 54-year-old male with a medical history significant for hypertension who presents with crushing substernal chest pain with radiation down his left arm. Patient states he was hunting about 50 minutes prior to arriving to the ED, initially began with nausea for which he took a Wisk of Dr. Trujillo and had vomiting. Nausea apparently subsequently subsided, but soon after midsternal chest pain began crushing in nature with radiation down his left arm, and diaphoresis. Patient has never experienced before. He has a non- smoker, does not drink much alcohol. Denies fever/chills, abdominal pain, recent medication changes. Has been adherent to his losartan at home. Upon arrival patient had ST elevations in leads V2 through V4 consistent with a STEMI. STEMI alert was initiated and patient was taken to the [facility] and received FLORENCIO x 2 to the LAD. Patient tolerated procedure well. On my evaluation of patient, he continues to have mild left-sided chest pain but significantly improved from prior. Denies shortness of breath, fevers. Does endorse fatigue. Workup in the ED significant for WBC 16, potassium 3.1, creatinine 1.3, LDL 102, troponin 0.02. ECHO reveals LVEF 45% with severe wall motion abnormalities. Given these findings, ED provider discussed case with me and I decided to admit patient from the [facility]. #STEMI #CAD #LV dysfunction #Hypertension #Hyperlipidemia #Nonsustained V. tach ? Presented with substernal crushing chest pain, radiation to left and left arm. ST elevations in leads V2 to V4, consistent with STEMI. ? Patient is a non-smoker, does not drink alcohol. Family history of deaths from [place]. ? Taken to [facility], s/p PCI with FLORENCIO x 2 to LAD on 02/22/2025. Patient tolerated procedure well. ? ECHO on 02/22/2025 shows LVEF 45% with severe wall motion abnormalities. No signs of volume overload. ? Did have an episode of 8 beat nonsustained V. tach overnight. No repeat episodes. Hemodynamically stable. Continue metoprolol. ? Cardiology started Entresto 24/26 mg, spironolactone 25 mg, Jardiance 10 mg today due to LV dysfunction. ? Continue aspirin 81 mg, prasugrel 10 mg, atorvastatin 40 mg, metoprolol succinate 25 mg. Plan to restart home losartan tomorrow as BP tolerates. ? A1c 5.4%, LDL 102, TSH 0.64. ? Patient has an episode of nausea/vomiting today discharge after receiving oral doxycycline. No active signs of infection, will discontinue. ? Discharged with the above medications, will follow-up with cardiology in [place] within 1 week. #Hypokalemia ? Replaced per protocol. #Seizure disorder ? Patient takes lamotrigine, risk of cardiac arrhythmias especially with STEMI and LV dysfunction. Discussed with neurologist in [place], agreed with tapering off lamotrigine and starting Keppra 500 mg twice daily. Patient will reduce total lamotrigine dose by 50 mg every week until discontinuation. Total time spent on discharge: 40 minutes on chart review, counseling, documentation, and direct care with patient. Exam Data for Last 24 hours Vital signs and Labs for Last 24 Hours: Temp Pulse Resp BP Pulse Ox O2 Del Method O2 Flow Rate 98.5 F 80 17 123/73 94 L Room Air 2 02/24/25 07:48 02/24/25 08:00 02/24/25 07:48 02/24/25 07:48 02/24/25 08:15 02/24/25 09:00 02/24/25 06:48 Laboratory Results - last 24 hr 02/23/25 04:34: Troponin I 35.30 H 02/24/25 05:29: Sodium 133 L, Potassium 4.1 D, Chloride 100, Carbon Dioxide 28, Anion Gap 9.1, BUN 6 L D, Creatinine 1.10, Estimated Creat Clear 91, Estimated GFR 69, Est GFR ( Amer) 84, Glucose 115 H, Calcium 9.2, Magnesium 1.8, Total Bilirubin 1.5 H, AST 154 H, ALT 47, Alkaline Phosphatase 101, Total Protein 7.0, Albumin 4.0, Globulin 3.0, Albumin/Globulin Ratio 1.3 I & O for Last 24 hours: Intake & Output 02/21/25 02/22/25 02/23/25 02/24/25 23:59 23:59 23:59 23:59 Intake Total 740 / 740 1220 / 1460 360 / 360 Output Total 1200 / 2000 2850 / 2850 0 / 0 Balance -460 / -1260 -1630 / -1390 360 / 360 Weight 86.183 kg 86.4 kg 84.64 kg Constitutional Constitutional: no acute distress *Routine Respiratory Exam Respiratory: Present CTA bilaterally and symmetric chest movement *Routine Cardiovascular Exam Cardiovascular: Present RRR, Normal S1 and Normal S2 *Routine Abdominal Exam Abdominal: Present soft and normoactive bowel sounds; Absent tenderness *Routine Extremities Exam Extremities: Present full ROM and normal capillary refill; Absent edema *Routine Skin Exam Skin: Present intact, dry and warm Detailed Neck Exam: Thyroids Thyroid: Absent bruit Results Data Completed and Pending Labs on day of discharge: Labs from last 24 hours 02/24/25 02/23/25 05:29 04:34 Sodium 133 L Potassium 4.1 D Chloride 100 Carbon Dioxide 28 Anion Gap 9.1 BUN 6 L D Creatinine 1.10 Estimated Creat Clear 91 Estimated GFR 69 Est GFR ( Amer) 84 Glucose 115 H Calcium 9.2 Magnesium 1.8 Total Bilirubin 1.5 H AST 154 H ALT 47 Alkaline Phosphatase 101 Troponin I 35.30 H Total Protein 7.0 Albumin 4.0 Globulin 3.0 Albumin/Globulin Ratio 1.3 DS: Diagnosis Discharge Diagnosis (1) ST elevation (STEMI) myocardial infarction: Status: Acute Code(s): I21.3 - ST elevation (STEMI) myocardial infarction of unspecified site (2) LV dysfunction: Status: Acute Code(s): I51.9 - Heart disease, unspecified (3) Hyperlipidemia: Status: Acute Code(s): E78.5 - Hyperlipidemia, unspecified Meds Home Medications and Allergies Home Medications ?Medication ?Instructions ?Recorded ?Confirmed ?Type aspirin 81 mg tablet,delayed 81 mg PO DAILY 30 days #3 0 tabs 02/24/25 Rx release atorvastatin 40 mg tablet 40 mg PO HS 30 days #30 tabs 02/24/25 Rx empagliflozin 10 mg tablet 10 mg PO DAILY 30 days #30 tabs 02/24/25 Rx (Jardiance) lamotrigine 100 mg tablet See Rx Instructions .Route 1 04/26/24 02/23/25 Rx .COMPLEX #14 tabs levetiracetam 500 mg tablet 500 mg PO BID 30 days #60 tabs 02/24/25 Rx (Keppra) metoprolol succinate 25 mg 25 mg PO DAILY 30 days #30 tabs 02/24/25 Rx tablet,extended release 24 hr ondansetron 4 mg disintegrating 4 mg sublingual Q6HP P RN Nausea 02/24/25 Rx tablet #12 tabs prasugrel HCl 10 mg tablet 10 mg PO DAILY #30 tabs Rx sacubitril 24 mg-valsartan 26 mg 1 tab PO BID 30 days #60 tabs 02/24/25 Rx tablet (Entresto) spironolactone 25 mg tablet 25 mg PO DAILY 30 days #30 tabs 02/24/25 Rx New Prescriptions to Start Prescriptions: aspirin [place],Rajan atorvastatin [place],Rajan empagliflozin [Jardiance] Cec[place],Rajan levetiracetam [Keppra] [place],Rajan metoprolol succinate [place],Rajan ondansetron [place],Rajan prasugrel HCl [place],Rajan sacubitril-valsartan [Entresto] Cecilia,Rajan spironolactone Cecilia,Rajan Allergies Allergy/AdvReac Type Severity Reaction Status Date / Time codeine Allergy Unknown Verified 02/22/25 10:50 allergy reaction Discharge Plan Disposition Patient Disposition: Home, Self-Care Condition: Fair Discharge Order Discharge Orders: Discharge Order (Routine); Ordered 02/24/25 Ordered By: Rajan Brooks Follow up Plan Prescriptions/Medication Reconciliation: New aspirin 81 mg Tablet,Delayed Release (Dr/Ec) 81 mg PO DAILY 30 Days Qty: 30 0RF atorvastatin 40 mg Tablet 40 mg PO HS 30 Days Qty: 30 0RF Jardiance 10 mg Tablet 10 mg PO DAILY 30 Days Qty: 30 0RF metoprolol succinate 25 mg Tablet Extended Release 24 Hr 25 mg PO DAILY 30 Days Qty: 30 0RF prasugrel HCl 10 mg Tablet 10 mg PO DAILY Qty: 30 0RF spironolactone 25 mg Tablet 25 mg PO DAILY 30 Days Qty: 30 0RF sacubitril-valsartan [Entresto] 24-26 mg Tablet 1 tab PO BID 30 Days Qty: 60 0RF levetiracetam [Keppra] 500 mg tablet 500 mg PO BID 30 Days Qty: 60 0RF ondansetron 4 mg Tablet,Disintegrating 4 mg sublingual Q6HP PRN (Reason: Nausea) Qty: 12 0RF Changed lamotrigine 100 mg Tablet See Rx Instructions .ROUTE .COMPLEX Qty: 14 0RF Rx Instructions: Decreased total dose by 50 mg each week, then discontinue. Discontinued losartan 25 mg tablet 25 mg PO DAILY Problem Reconciliation Problems Reviewed?: Yes Patient Discharge Instructions Print Language: K[place]z Providers Primary Care Provider: Provider,Referral Admit Provider: Rajan Brooks Attending Provider: Rajan Brooks
[2025-02-24 10:36] LABS: NT Pro Brain Natriuretic Pep. 2890 pg/mL (0-125)
[2025-02-24 10:37] LABS: C-Reactive Protein 69.4 mg/L (0-4)
[2025-02-24 11:26] LABS: Procalcitonin 0.734 ng/mL (0.0-2.0)
[2025-02-24] MEDS: DOXYCYCLINE HYCL 100 MG TABLET PO (12:49)
--- NOTE | 2025-02-24 14:04 | ECG_ITS ---
APPROVED REPORT Exam: Resting ECG HR:73 bpm ECG Measurements Heart Rate 73 AXES IA 162 P 66 QRSd 91 QRS -38 QT 415 T 93 QTc 441 Conclusion SINUS RHYTHM ANTERIOR MYOCARDIAL INFARCTION , OF INDETERMINATE AGE [40+ ms Q WAVE AND/OR ST/T ABNORMALITY IN V3/V4] INFERIOR MYOCARDIAL INFARCTION , PROBABLY RECENT [40+ ms Q WAVE AND/OR ST/T ABNORMALITY IN II/aVF] Significant change in anterior st segments over the past 48 hours ACUTE TN UNCONFIRMED REPORT Electronically signed by : Nima Stewart MD 02/25/2025 08:50:37
[2025-02-24] MEDS: ONDANSETRON 4MG ODT 4 MG SL (14:10)
[2025-02-24 14:20] LABS: POC Glucose,Bedside 94 gm/dL (70-110)
[2025-02-24 14:43] LABS: Hematocrit 47.4 % (42.0-52.0); Hemoglobin 16.2 g/dL (14.1-18.0); Immature Granulocytes % 0.4 %; Mean Corpuscular HGB Conc 34.2 g/dL (31.8-35.4); Mean Corpuscular Hemoglobin 30.1 pg (27.0-31.2); Mean Corpuscular Volume 87.9 fl (80-94); Nucleated Red Blood Cells % 0 %; Platelet Count 273 K/mm3 (142-424); Red Blood Count 5.39 M/mm3 (4.60-6.20); Red Cell Distribution Width-SD 39.8 fL; White Blood Count 11.8 K/mm3 (4.8-10.8)
[2025-02-24 15:08] LABS: Alanine Aminotransferase 57 U/L (12-78); Albumin Level 4.4 g/dl (3.5-5.0); Albumin/Globulin Ratio 1.3 (1.1-1.8); Alkaline Phosphatase 91 U/L (38-126); Anion Gap 8.2 mEq/L (5-15); Aspartate Amino Transferase 176 U/L (17-59); Bilirubin,Total 1.5 mg/dl (0.2-1.3); Blood Urea Nitrogen 8 mg/dl (9-20); Calcium 9.5 mg/dl (8.4-10.2); Carbon Dioxide 31 mmol/L (22.0-30.0); Chloride 98 mmol/L (98-107); Creatinine Clearance Estimated 91 mL/min (50-200); Creatinine,Serum 1.10 mg/dl (0.66-1.25); Estimated Glomerular Filt Rate 69 ml/min (>60); GFR (African American) 84 ML/MIN (>60); Globulin 3.4 g/dL (1.3-3.2); Glucose 99 mg/dl (74-100); Magnesium 2.0 mg/dl (1.6-2.3); Potassium 4.2 mmoL/L (3.5-5.1); Sodium 133 mmol/L (136-145); Total Protein,Serum 7.8 g/dl (6.3-8.2)
[2025-02-24 15:12] LABS: D-Dimer 0.86 ug/mL (0.0-0.5)
[2025-02-24 15:14] LABS: C-Reactive Protein 73.3 mg/L (0-4)
[2025-02-24 15:26] LABS: Troponin I 17.70 ng/ml (0.00-0.034)
--- NOTE | 2025-02-28 09:09 | SW/DCPLANNER ---
Phoned patient x2. Patient's number is the wrong number. Pal LUCAS Tongue Carrier
--- NOTE | 2025-03-21 14:55 | PC.NURSE ---
02/28/2025 pt lives in [place]. Called no answer.
== END 2025-02-24 17:29 | disposition home or self-care (01) | DRG 360 ==
LOC: ER 11:05 → CATHLAB 11:11 → ICU 11:16 → 2ND 02-23 14:40
PROVIDERS: Internal Medicine; Admitting Provider Student in an Organized Health Care Education/Training Program; Emergency Provider Student in an Organized Health Care Education/Training Program; Visit Provider Student in an Organized Health Care Education/Training Program
PROC: 4A023N7 Measurement of Cardiac Sampling and Pressure, Left Heart, Percutaneous Approach (ICD-10-PCS; CPT 93452; principal; 2025-02-22 10:55)
DX: I21.09 ST elevation (STEMI) myocardial infarction involving other coronary artery of anterior wall (principal); I47.29 Other ventricular tachycardia; I25.10 Atherosclerotic heart disease of native coronary artery without angina pectoris; I10 Essential (primary) hypertension; E78.5 Hyperlipidemia, unspecified; E87.6 Hypokalemia; D72.829 Elevated white blood cell count, unspecified; Z79.82 Long term (current) use of aspirin; Z79.84 Long term (current) use of oral hypoglycemic drugs; Z88.5 Allergy status to narcotic agent; Z96.652 Presence of left artificial knee joint; F17.200 Nicotine dependence, unspecified, uncomplicated
CPT/HCPCS: 0223U; 36415; 71045; 80053; 80061; 82962; 83036; 83735; 83880; 84145; 84443; 84484; 85007; 85025; 85347; 85378; 85610; 85730; 86140; 86803; 87389; 93005; 93306; 99152; 99153; 99285; C1725; C1769; C1874; J1171; J1200; J1644; J1650; J2250; J2405; J3010; J7040; J7050; Q0162; Q9967